=== PATIENT | male | born 1965 | race Two or more races ===

== ENCOUNTER 2021-05-30 18:48 | Inpatient (IN) | payer OTHER ==
[2021-05-30] MEDS ORDERED: HYDROmorphone 1 MG/ML Syringe IVPUSH ONE ×3 (19:07→23:38)
[2021-05-30] MEDS ORDERED: Sodium Chloride 0.9% 1,000 ML IV ONE ×3 (19:07→20:22)
[2021-05-30 19:35] LABS: CARBON DIOXIDE,CO2 26.2 mmol/L (21.0-32.0); POTASSIUM,K 4.7 mmol/L (3.5-5.1)
[2021-05-30] MEDS ORDERED: Magnesium Citrate Solution 296 ML Bottle PO ONE (23:38)
[2021-05-31] MEDS ORDERED: Ondansetron 4 MG/2 ML SDV IVPUSH PRN (00:56)
[2021-05-31] MEDS ORDERED: Albuterol/Ipratropium 3.0-0.5 MG/3 ML Neb Soln NEB PRN (00:57)
[2021-05-31] MEDS: Morphine 2 MG/ML SYRINGE IVPUSH PRN ×5 (01:29→23:35)
[2021-05-31] MEDS: Lactated Ringers 1,000 ML IV SCH ×2 (04:55→15:02)
[2021-05-31 06:14] LABS: CARBON DIOXIDE,CO2 23.4 mmol/L (21.0-32.0); POTASSIUM,K 4.3 mmol/L (3.5-5.1)
[2021-05-31] MEDS ORDERED: Pantoprazole 40 MG in Sodium Chloride 0.9% 10 ML IVPUSH SCH (07:00)
[2021-05-31] MEDS ORDERED: Non-Formulary Medication 1 Each (Omeprazole [Omeprazole] 40 MG Capsule.Dr) PO SCH (08:03)
[2021-05-31] MEDS ORDERED: Docusate Sodium 100 MG Cap PO PRN (08:04)
[2021-05-31] MEDS ORDERED: Acetaminophen 325 MG Tab PO PRN (08:04)
[2021-05-31] MEDS ORDERED: Sodium Chloride 0.9% 10 ML Syringe FLUSH PRN (08:04)
[2021-05-31] MEDS ORDERED: Sodium Chloride 0.9% 2.5 ML Syringe FLUSH PRN (08:04)
[2021-05-31] MEDS ORDERED: Bisacodyl 10 MG Supp RECTAL ONE (08:27)
[2021-05-31] MEDS: Heparin Sodium 5,000 Units/ML Vial SUBCUT SCH ×2 (09:04→20:59)
[2021-05-31] MEDS: Tamsulosin 0.4 MG Cap.ER PO SCH (10:14)
[2021-05-31] MEDS: Docusate Sodium 100 MG Cap PO SCH ×2 (10:14→20:59)
[2021-06-01] MEDS: Morphine 2 MG/ML SYRINGE IVPUSH PRN ×2 (03:45→10:07)
[2021-06-01 06:29] LABS: CARBON DIOXIDE,CO2 24.3 mmol/L (21.0-32.0); POTASSIUM,K 4.6 mmol/L (3.5-5.1)
[2021-06-01] MEDS ORDERED: Omeprazole 20 MG Cap.CR PO SCH (07:30)
[2021-06-01] MEDS: Docusate Sodium 100 MG Cap PO SCH (09:59)
[2021-06-01] MEDS: Tamsulosin 0.4 MG Cap.ER PO SCH (10:00)
[2021-06-01] MEDS: Heparin Sodium 5,000 Units/ML Vial SUBCUT SCH (10:00)
[2021-06-01] MEDS ORDERED: Acetaminophen 325 MG Tab PO SCH (11:00)
[2021-06-01] MEDS ORDERED: Polyethylene Glycol 3350 Powder 17 GM Packet PO SCH ×2 (11:00→21:00)
[2021-06-01 12:36] VITALS: BP 107/62; PULSE 81
[2021-06-01] MEDS: Lactated Ringers 1,000 ML IV SCH (13:21)
[2021-06-01] MEDS ORDERED: Morphine 2 MG/ML SYRINGE IVPUSH PRN ×2 (16:00)
== END 2021-06-01 15:20 | disposition left against medical advice (07) | DRG 683 ==
LOC: MW.ED 18:48 → MW.MS 23:31
PROVIDERS: ADMIT Student in an Organized Health Care Education/Training Program; ATTEND Student in an Organized Health Care Education/Training Program
DX: N17.9 Acute kidney failure, unspecified (principal); R10.9 Unspecified abdominal pain; Z68.41 Body mass index [BMI] 40.0-44.9, adult; Z92.21 Personal history of antineoplastic chemotherapy; K59.00 Constipation, unspecified; K80.20 Calculus of gallbladder without cholecystitis without obstruction; H54.7 Unspecified visual loss; R33.9 Retention of urine, unspecified; E66.9 Obesity, unspecified; F17.210 Nicotine dependence, cigarettes, uncomplicated; Z20.822 Contact with and (suspected) exposure to COVID-19; Z85.038 Personal history of other malignant neoplasm of large intestine; Z79.899 Other long term (current) drug therapy; Z86.19 Personal history of other infectious and parasitic diseases; Z98.890 Other specified postprocedural states
CPT/HCPCS: 36415; 74176; 80053; 81001; 82570; 83605 ×2; 83690; 83735; 84300; 85025; 87635; 96374; 96376; 99285; J1170 ×2; J7030 ×3; 51798; 74019; 74019-26; 80048; 84100; 85730; A9270-GY; C9113; J1644; J2270; J7120; U0002

== ENCOUNTER 2021-07-18 20:37 | Emergency (ER) | payer OTHER ==
[2021-07-18] MEDS ORDERED: Sodium Chloride 0.9% 2.5 ML Syringe FLUSH PRN (21:21)
[2021-07-18] MEDS ORDERED: Sodium Chloride 0.9% 10 ML Syringe FLUSH PRN (21:21)
[2021-07-18] MEDS ORDERED: Morphine 4 MG/ML VIAL IVPUSH ONE (22:04)
[2021-07-18 22:23] LABS: CARBON DIOXIDE,CO2 25.6 mmol/L (21.0-32.0); POTASSIUM,K 4.7 mmol/L (3.5-5.1)
[2021-07-18] MEDS ORDERED: Sodium Chloride 0.9% 500 ML IV SCH (23:45)
[2021-07-19 02:30] VITALS: BP 118/74; PULSE 86
== END 2021-07-19 02:35 | disposition home or self-care (01) ==
LOC: MW.ED 20:37
DX: R10.9 Unspecified abdominal pain (principal); E66.9 Obesity, unspecified; Z68.41 Body mass index [BMI] 40.0-44.9, adult; Z79.899 Other long term (current) drug therapy
CPT/HCPCS: 36415; 71045; 74176; 80053; 81001; 83605; 83690; 84484; 85025; 87086; 93005; 96374; 99284; J2270; J3490; J7040; 93010; 99283

== ENCOUNTER 2021-11-02 13:44 | Emergency (ER) | payer SELFPAY ==
[2021-11-02 14:30] VITALS: BP 134/79; PULSE 105
[2021-11-02] MEDS ORDERED: Acetaminophen 500 MG Tab PO ONE (15:08)
[2021-11-02] MEDS ORDERED: Morphine 4 MG/ML VIAL IVPUSH ONE (15:17)
[2021-11-02] MEDS ORDERED: Ondansetron 4 MG/2 ML SDV IVPUSH ONE (15:17)
[2021-11-02] MEDS ORDERED: Sodium Chloride 0.9% 1,000 ML IV ONE ×2 (15:17→17:28)
[2021-11-02 15:18] LABS: CARBON DIOXIDE,CO2 27.5 mmol/L (21.0-32.0); POTASSIUM,K 4.4 mmol/L (3.5-5.1)
== END 2021-11-03 19:24 | disposition home or self-care (01) ==
LOC: MW.ED 13:44
DX: R31.9 Hematuria, unspecified (principal); E86.0 Dehydration; E66.9 Obesity, unspecified; Z79.899 Other long term (current) drug therapy; Z68.41 Body mass index [BMI] 40.0-44.9, adult
CPT/HCPCS: 36415; 74176; 80048; 81001; 82247; 83605; 84075; 84450; 84460; 85025; 85610; 96361; 96374; 96375; 99284; J2270; J2405; J7030

== ENCOUNTER 2021-11-03 19:40 | Inpatient (IN) | payer SELFPAY ==
[2021-11-03] MEDS ORDERED: Sodium Chloride 0.9% 10 ML Syringe FLUSH PRN (20:33)
[2021-11-03] MEDS ORDERED: HYDROmorphone 1 MG/ML Syringe IVPUSH ONE (20:33)
[2021-11-03] MEDS ORDERED: Ondansetron 4 MG/2 ML SDV IVPUSH ONE (20:33)
[2021-11-03] MEDS ORDERED: Sodium Chloride 0.9% 1,000 ML IV ONE (20:33)
[2021-11-03] MEDS ORDERED: Sodium Chloride 0.9% 2.5 ML Syringe FLUSH PRN (20:33)
[2021-11-03 21:46] LABS: CARBON DIOXIDE,CO2 23.5 mmol/L (21.0-32.0)
[2021-11-03] MEDS ORDERED: fentaNYL 50 MCG/ML SDV IVPUSH ONE (22:20)
[2021-11-04] MEDS ORDERED: HYDROmorphone 1 MG/ML Syringe IVPUSH ONE (00:47)
[2021-11-04] MEDS ORDERED: Iopamidol 755 MG/ML 500 ML Multipack Bottle IVPUSH ONE (00:52)
[2021-11-04] MEDS ORDERED: Piperacillin/Tazobactam 4.5 GM in Sodium Chloride 0.9% 100 ML IV ONE (03:00)
[2021-11-04] MEDS ORDERED: HYDROmorphone 1 MG/ML Syringe IVPUSH PRN (03:04)
[2021-11-04 03:15] LABS: CORONAVIRUS COVID-19 NAA NEGATIVE (NEGATIVE); INFLUENZA A NAA NEGATIVE (NEGATIVE); INFLUENZA B NAA NEGATIVE (NEGATIVE); RESPIRATORY SYNCYTIAL VIR NAA NEGATIVE (NEGATIVE)
[2021-11-04] MEDS ORDERED: Ondansetron 4 MG/2 ML SDV IVPUSH PRN (03:51)
[2021-11-04] MEDS ORDERED: Albuterol/Ipratropium 3.0-0.5 MG/3 ML Neb Soln NEB PRN (03:51)
[2021-11-04] MEDS: Lactated Ringers 1,000 ML IV SCH ×2 (04:15→16:50)
[2021-11-04] MEDS: Pantoprazole 40 MG in Sodium Chloride 0.9% 10 ML IVPUSH SCH (04:15)
[2021-11-04] MEDS: Enoxaparin 40 MG/0.4 ML Syringe SUBCUT SCH (04:15)
[2021-11-04] MEDS: HYDROmorphone 2 MG/ML Syringe IVPUSH PRN ×5 (04:15→20:06)
[2021-11-04 06:53] LABS: POTASSIUM,K 4.7 mmol/L (3.5-5.1)
[2021-11-04] MEDS: Piperacillin/Tazobactam 3.375 GM in Sodium Chloride 0.9% 50 ML IV SCH ×3 (08:06→20:07)
[2021-11-04] MEDS: Acetaminophen/HYDROcodone 325-10 MG Tab PO PRN (23:50)
[2021-11-05] MEDS: HYDROmorphone 1 MG/ML Syringe IVPUSH PRN ×2 (02:00→08:44)
[2021-11-05] MEDS: Piperacillin/Tazobactam 3.375 GM in Sodium Chloride 0.9% 50 ML IV SCH ×3 (02:01→15:36)
[2021-11-05] MEDS: Acetaminophen 325 MG Tab PO PRN ×2 (02:43→15:43)
[2021-11-05] MEDS: Pantoprazole 40 MG in Sodium Chloride 0.9% 10 ML IVPUSH SCH (04:20)
[2021-11-05] MEDS: Enoxaparin 40 MG/0.4 ML Syringe SUBCUT SCH (04:20)
[2021-11-05] MEDS: Lactated Ringers 1,000 ML IV SCH ×2 (06:10→19:07)
[2021-11-05 06:48] LABS: CARBON DIOXIDE,CO2 25.7 mmol/L (21.0-32.0); POTASSIUM,K 4.3 mmol/L (3.5-5.1)
[2021-11-05] MEDS: Acetaminophen/HYDROcodone 325-10 MG Tab PO PRN ×3 (08:12→20:45)
[2021-11-05] MEDS ORDERED: OXYCODONE MYRISTATE 27 MG PO SCH (10:30)
[2021-11-05] MEDS ORDERED: Polyethylene Glycol 3350 Powder 17 GM Packet PO PRN (12:17)
[2021-11-05] MEDS ORDERED: Tamsulosin 0.4 MG Cap.ER PO SCH (18:00)
[2021-11-05] MEDS ORDERED: Iopamidol 755 MG/ML 500 ML Multipack Bottle IVPUSH STA (18:25)
[2021-11-05] MEDS ORDERED: Azithromycin 500 MG in Sodium Chloride 0.9% 250 ML IV SCH (20:00)
[2021-11-05 20:10] VITALS: BP 119/74; PULSE 90
== END 2021-11-05 21:50 | DRG 556 ==
LOC: MW.ED 19:40 → MW.MS 11-04 03:01
PROVIDERS: ADMIT Student in an Organized Health Care Education/Training Program; ATTEND Student in an Organized Health Care Education/Training Program
DX: M79.81 Nontraumatic hematoma of soft tissue (principal); R18.8 Other ascites; N17.9 Acute kidney failure, unspecified; Z68.41 Body mass index [BMI] 40.0-44.9, adult; K59.00 Constipation, unspecified; N40.0 Benign prostatic hyperplasia without lower urinary tract symptoms; E66.9 Obesity, unspecified; H54.7 Unspecified visual loss; R33.9 Retention of urine, unspecified; Z20.822 Contact with and (suspected) exposure to COVID-19; Z86.19 Personal history of other infectious and parasitic diseases; Z98.890 Other specified postprocedural states; Z79.899 Other long term (current) drug therapy; Z92.3 Personal history of irradiation; Z85.048 Personal history of other malignant neoplasm of rectum, rectosigmoid junction, and anus; K80.20 Calculus of gallbladder without cholecystitis without obstruction
CPT/HCPCS: 0241U; 36415; 71275; 71275-26; 74174; 74174-26; 74176; 74176-26; 76705; 76705-26; 80053; 80305-QW; 81001; 83605; 83690; 83735; 83880; 84100; 84484; 85014; 85018; 85025; 85379; 86850; 86900; 86901; 86920; 87040; 87086; 93005; 93010; 96361; 96374; 96375; 96376; 99221; 99239; 99284; 99285-25; A9270-GY; C9113; J1170; J1650; J2405; J2543; J3010; J3490; J7030; J7120; Q9967

== ENCOUNTER 2022-01-25 16:22 | Inpatient (IN) | payer SELFPAY ==
[2022-01-25] MEDS ORDERED: Ondansetron 4 MG/2 ML SDV IVPUSH ONE ×2 (19:45→20:30)
[2022-01-25] MEDS ORDERED: Sodium Chloride 0.9% 2.5 ML Syringe FLUSH PRN (19:45)
[2022-01-25] MEDS ORDERED: Sodium Chloride 0.9% 10 ML Syringe FLUSH PRN (19:45)
[2022-01-25] MEDS ORDERED: Sodium Chloride 0.9% 1,000 ML IV ONE ×3 (19:45→22:42)
[2022-01-25] MEDS ORDERED: HYDROmorphone 1 MG/ML Syringe IVPUSH ONE ×3 (19:45→22:38)
[2022-01-25 20:28] LABS: BLOOD UREA NITROGEN,BUN 20 mg/dL (7.0-18.0); CARBON DIOXIDE,CO2 23.7 mmol/L (21.0-32.0); CHLORIDE,CL 102 mmol/L (98-107); GLUCOSE RANDOM 139 mg/dL (74-106); LIPASE 67 U/L (73-393); POTASSIUM,K 4.4 mmol/L (3.5-5.1); SODIUM,NA 141 mmol/L (136-148)
[2022-01-25 20:34] LABS: ESTIMATED GFR 44 mL/min (>60)
[2022-01-25] MEDS ORDERED: Iopamidol 755 MG/ML 500 ML Multipack Bottle IVPUSH ONE (21:21)
[2022-01-25] MEDS ORDERED: Ketorolac 30 MG/ML SDV IVPUSH ONE (22:17)
[2022-01-25] MEDS ORDERED: fentaNYL 50 MCG/ML SDV IVPUSH ONE (22:17)
[2022-01-25] MEDS ORDERED: Piperacillin/Tazobactam 4.5 GM in Sodium Chloride 0.9% 100 ML IV ONE (22:39)
[2022-01-25] MEDS ORDERED: Albuterol/Ipratropium 3.0-0.5 MG/3 ML Neb Soln NEB PRN (23:59)
[2022-01-25] MEDS ORDERED: Ondansetron 4 MG/2 ML SDV IVPUSH PRN (23:59)
[2022-01-26 00:29] LABS: CORONAVIRUS COVID-19 NAA NEGATIVE (NEGATIVE); INFLUENZA A NAA NEGATIVE (NEGATIVE); INFLUENZA B NAA NEGATIVE (NEGATIVE)
[2022-01-26] MEDS: Heparin Sodium 5,000 Units/ML Vial SUBCUT SCH ×4 (00:30→23:17)
[2022-01-26] MEDS: Pantoprazole 40 MG in Sodium Chloride 0.9% 10 ML IVPUSH SCH ×2 (00:30→23:17)
[2022-01-26] MEDS: Lactated Ringers 1,000 ML IV SCH ×3 (01:18→17:22)
[2022-01-26] MEDS: HYDROmorphone 2 MG/ML Syringe IVPUSH PRN ×6 (03:12→21:33)
[2022-01-26] MEDS: Piperacillin/Tazobactam 3.375 GM in Sodium Chloride 0.9% 50 ML IV SCH ×4 (05:38→23:17)
[2022-01-26 06:01] LABS: BLOOD UREA NITROGEN,BUN 25 mg/dL (7.0-18.0); CARBON DIOXIDE,CO2 23.1 mmol/L (21.0-32.0); CHLORIDE,CL 104 mmol/L (98-107); ESTIMATED GFR 28 mL/min (>60); GLUCOSE RANDOM 132 mg/dL (74-106); POTASSIUM,K 5.4 mmol/L (3.5-5.1); SODIUM,NA 140 mmol/L (136-148)
[2022-01-27] MEDS: Lactated Ringers 1,000 ML IV SCH ×2 (01:34→08:43)
[2022-01-27] MEDS: HYDROmorphone 2 MG/ML Syringe IVPUSH PRN ×2 (05:08→08:31)
[2022-01-27] MEDS: Piperacillin/Tazobactam 3.375 GM in Sodium Chloride 0.9% 50 ML IV SCH (05:09)
[2022-01-27 07:02] LABS: CARBON DIOXIDE,CO2 26.4 mmol/L (21.0-32.0); POTASSIUM,K 4.2 mmol/L (3.5-5.1)
[2022-01-27] MEDS: Heparin Sodium 5,000 Units/ML Vial SUBCUT SCH ×3 (07:40→23:08)
[2022-01-27] MEDS ORDERED: Sodium Chloride 0.9% 2.5 ML Syringe FLUSH PRN (08:05)
[2022-01-27] MEDS ORDERED: Sodium Chloride 0.9% 10 ML Syringe FLUSH PRN (08:05)
[2022-01-27] MEDS ORDERED: Bisacodyl 10 MG Supp RECTAL PRN (08:29)
[2022-01-27] MEDS: Docusate Sodium 100 MG Cap PO SCH ×2 (08:43→21:32)
[2022-01-27] MEDS ORDERED: Tamsulosin 0.4 MG Cap.ER PO ONE (11:04)
[2022-01-27] MEDS ORDERED: cefTRIAXone 2 GM in Premix Bag 1 BAG IV SCH (12:00)
[2022-01-27] MEDS: OXYCODONE MYRISTATE 27 MG PO SCH ×2 (13:01→23:08)
[2022-01-27] MEDS: Acetaminophen/HYDROcodone 325-10 MG Tab PO PRN ×2 (13:15→19:39)
[2022-01-28] MEDS: Acetaminophen/HYDROcodone 325-10 MG Tab PO PRN ×2 (02:04→08:49)
[2022-01-28 07:01] LABS: CARBON DIOXIDE,CO2 26.8 mmol/L (21.0-32.0); POTASSIUM,K 3.5 mmol/L (3.5-5.1)
[2022-01-28] MEDS ORDERED: Pantoprazole 40 MG Tab.CR PO SCH (07:30)
[2022-01-28] MEDS ORDERED: Tamsulosin 0.4 MG Cap.ER PO SCH (08:30)
[2022-01-28] MEDS: OXYCODONE MYRISTATE 27 MG PO SCH (08:35)
[2022-01-28] MEDS: Docusate Sodium 100 MG Cap PO SCH (08:35)
[2022-01-28] MEDS: Heparin Sodium 5,000 Units/ML Vial SUBCUT SCH (08:36)
[2022-01-28] MEDS ORDERED: Cephalexin 500 MG Cap PO ONE (11:44)
[2022-01-28 12:36] VITALS: BP 123/74; PULSE 97
== END 2022-01-28 13:55 | disposition home or self-care (01) | DRG 682 ==
LOC: MW.ED 16:22 → MW.MS 23:30
PROVIDERS: ADMIT Student in an Organized Health Care Education/Training Program; ATTEND Student in an Organized Health Care Education/Training Program
DX: N17.9 Acute kidney failure, unspecified (principal); K65.2 Spontaneous bacterial peritonitis; C19 Malignant neoplasm of rectosigmoid junction; R18.8 Other ascites; Z68.41 Body mass index [BMI] 40.0-44.9, adult; N39.0 Urinary tract infection, site not specified; N13.9 Obstructive and reflux uropathy, unspecified; R33.9 Retention of urine, unspecified; K59.00 Constipation, unspecified; H54.7 Unspecified visual loss; K59.09 Other constipation; E66.9 Obesity, unspecified; Z20.822 Contact with and (suspected) exposure to COVID-19; T50.8X5A Adverse effect of diagnostic agents, initial encounter; R16.0 Hepatomegaly, not elsewhere classified; G89.29 Other chronic pain; K80.20 Calculus of gallbladder without cholecystitis without obstruction; Z85.038 Personal history of other malignant neoplasm of large intestine; Z90.49 Acquired absence of other specified parts of digestive tract; Z79.899 Other long term (current) drug therapy; Z87.891 Personal history of nicotine dependence
CPT/HCPCS: 0240U; 36415; 51701; 51702; 51798; 71275; 71275-26; 74174; 74174-26; 74176; 74176-26; 76705; 76705-26; 80053; 80307; 81001; 82378; 83605; 83690; 83735; 84100; 85025; 85610; 85730; 87040; A9270-GY; C9113; J0696; J1170; J1644; J1885; J2405; J2543; J3010; J3490; J7030; J7120; Q9967